=== PATIENT | female | born 1940 | race Asian ===

== ENCOUNTER 2016-11-10 14:17 | Emergency (ER) | payer OTHER ==
[~2016-11-10] VITALS: Ht 147.3 cm; Wt 50.8 kg
[2016-11-10 14:28] VITALS: BP_SYST 124
[2016-11-10 16:00] VITALS: BP_SYST 125
== END 2016-11-10 16:00 | disposition home or self-care (01) ==
LOC: SED 14:17
DX: M25.562 Pain in left knee (principal); I10 Essential (primary) hypertension; E03.9 Hypothyroidism, unspecified; M10.9 Gout, unspecified; Z85.79 Personal history of other malignant neoplasms of lymphoid, hematopoietic and related tissues; Z85.3 Personal history of malignant neoplasm of breast; Z90.10 Acquired absence of unspecified breast and nipple
CPT/HCPCS: 73564; 99284